=== PATIENT | male | born 1975 | race Caucasian/White ===

== ENCOUNTER 2020-08-23 06:00 | Day surgery (SDC) | payer OTHER ==
[2020-08-22 13:09] VITALS: BMI 34.7
--- NOTE | 2020-08-23 11:22 | HP ---
History & Physical Update - History History: No Change - Physical Physical: No Change - Assessment Assessment: No Change - Plan Plan: No Change
--- NOTE | 2020-08-23 11:23 | OP ---
Operative Note - Note: Operative Date: 08/23/20 Pre-Operative Diagnosis: L ureteral calculus Operation: L ureteroscopic laser lithotripsy and JJ stent change Findings: L ureteral calculus Post-Operative Diagnosis: Same as Pre-op Environmental Field Office Manager: Chris Montero Anesthesiologist/HOUSEKEEPING ROOM ATTENDANT: William Vaughn Anesthesia: General Specimens Removed: L ureteral calculi, L JJ stent Estimated Blood Loss (mls): 0 Drains & Tubes with Location: 6 fr 26 cm L JJ stent Operative Report Dictated: Yes
[2020-08-23] MEDS ORDERED: PROPOFOL 20 ML ONE (14:21)
[2020-08-23] MEDS ORDERED: MIDAZOLAM HCL 2 MG/2 ML SINGLE DOSE VIAL ONE (14:21)
[2020-08-23] MEDS ORDERED: ceFAZolin SODIUM 1 GM VIAL IVPB ONE (14:45)
[2020-08-23] MEDS ORDERED: ceFAZolin SODIUM 1 GM VIAL ONE (14:46)
[2020-08-23] MEDS ORDERED: LABETALOL HCL 5 MG/1 ML (100MG/20 ML VIAL) ONE (14:49)
[2020-08-23] MEDS ORDERED: DEXAMETHASONE SOD PHOSPHATE 4 MG/1 ML VIAL ONE (14:49)
[2020-08-23] MEDS ORDERED: KETOROLAC TROMETHAMINE 30 MG/1 ML VIAL ONE (14:49)
--- NOTE | 2020-08-23 16:17 | OP ---
DATE OF OPERATION: 08/23/2020 PREOPERATIVE DIAGNOSIS: Left ureteral calculus. POSTOPERATIVE DIAGNOSIS: Left ureteral calculus. PROCEDURE: Left ureteroscopic laser lithotripsy and left Double J stent change. SURGEON: Chris Newberry MD. STONE SETTER APPRENTICE: None. ANESTHESIA: General via laryngeal mask. ANESTHESIOLOGIST: William Vaughn MD. SPECIMENS: Left ureteral calculi and left Double J stent. CULTURES: None. DRAINS: A 6-Macanese, 26-cm left Double J stent. ESTIMATED BLOOD LOSS: None. COMPLICATIONS: None. DESCRIPTION OF PROCEDURE: Patient was brought in the operating room, placed on the operating room table in the supine position. After administration of general anesthesia via laryngeal mask, intravenous antibiotics were administered. Sequential compression devices were placed. The patient was placed in the dorsal lithotomy position. The genitals were prepped and draped in the usual sterile manner. A 22 Macanese cystoscope was inserted into the bladder under direct vision. Anterior and posterior urethras were normal. The bladder was entered, thoroughly inspected. There were no tumors, stones. There was an inflammation related to the Double J stent. The left Double J stent was grasped brought to the urethral meatus, cannulated with a 0.035 guidewire, advanced to the level of the left renal pelvis under fluoroscopic guidance. The left Double J stent was removed, sent to pathology as specimen. Now dual lumen catheter was inserted. Retrograde pyelogram was done, demonstrated a left proximal ureteral calculus. A superstiff guidewire was attached to the dual lumen catheter. Dual lumen catheter was removed, and now the ureteral access sheath was advanced over the superstiff guidewire to the level of the proximal ureter. The sheath obturator was removed. Now the flexible ureteroscope was inserted through the ureteral access sheath to the proximal ureter where the stent was visualized. 365 micron laser fiber was used, and laser lithotripsy was done until the stone was fragmented into small pieces. Basket was utilized to remove the fragments. Retrograde pyelogram demonstrated no extravasation of contrast. The guidewire was coiled in the left renal pelvis. The ureteroscope was removed, inspecting the entire course of the ureter and the renal collecting system. No additional stones were seen. Now the ureteral access sheath was removed. The cystoscope back loaded, and the 6 Macanese 26-cm left Double J stent was inserted over the guidewire under direct visual and fluoroscopic guidance, leaving 1 coil in the renal pelvis and 1 coil in the bladder. The bladder was emptied, instruments removed. He tolerated the procedure well. Transferred to recovery room in stable condition. CHRIS NEWBERRY M.D. [id number]
[2020-08-23] MEDS ORDERED: ONDANSETRON 4 MG/2 ML VIAL IVPUSH PRN (16:49)
[2020-08-23] MEDS ORDERED: oxyCODONE HCL 5 MG TABLET PO PRN ×2 (16:49)
[2020-08-23] MEDS ORDERED: LACTATED RINGERS SOLUTION 1,000 ML IV SCH (17:00)
[2020-08-23 17:50] VITALS: BP 138/92; PULSE 80; TEMP 98
--- NOTE | 2020-08-27 15:50 | PATH ---
Surgical Pathology Report Patient Name: LINNETTE MORENO Med. Rec. #: [id number] /Age/Gender: 1975 (Age: 45) / M Account: [id number] Location: [facility] SURGICAL Taken: 08/23/2020 Received: 08/24/2020 Reported: 08/27/2020 Physicians: Chris Montero M.D. Specimen(s) Received A: STONE B: STENT Clinical History Calculus of ureter Final Diagnosis A. STONES, REMOVAL: CONSISTENT WITH CALCULI. SENT FOR CHEMICAL ANALYSIS. B. STENT, REMOVAL: CONSISTENT WITH SEGMENT OF STENT. GROSS ONLY. Electronically Signed Shawna Martin M.D. Gross Description A. Received fresh labeled "stones," are 5 castillo-brown, irregular calculi ranging from 0.1-0.4 cm in greatest dimension. The specimen is sent for chemical analysis. B. Received fresh labeled "stent," is a 38 cm in length blue, coiled portion of tubing, consistent with a ureteral stent. No soft tissue is present. No sections are submitted, gross only. DL/08/24/2020 saudi/08/24/2020
[2020-09-02 13:07] LABS: CA OXALATE MONOHYDR. 100; WEIGHT 62 mg
== END 2020-08-23 17:25 | disposition home or self-care (01) ==
LOC: JASU-SURG 06:00
PROVIDERS: ATTEND Urology
PROC: 0TC78ZZ Extirpation of Matter from Left Ureter, Via Natural or Artificial Opening Endoscopic (ICD-10-PCS; principal; 2020-08-23 14:00)
PROC: 0T778DZ Dilation of Left Ureter with Intraluminal Device, Via Natural or Artificial Opening Endoscopic (ICD-10-PCS; 2020-08-23 14:00)
DX: N20.1 Calculus of ureter (principal)
CPT/HCPCS: 36415; 82360; 88300-TC; 94760